=== PATIENT | male | born 1990 ===

== ENCOUNTER → 2020-07-04 15:14 | Outpatient (BNVA) | payer OTHER, SELFPAY | PROVIDERS: Family Provider Nurse Practitioner; PCP Nurse Practitioner; Visit Provider Nurse Practitioner Family | DX: R09.81 Nasal congestion (principal); J02.9 Acute pharyngitis, unspecified; R50.9 Fever, unspecified | CPT/HCPCS: 87635 ==

== ENCOUNTER → 2025-06-16 11:13 | Outpatient (BNVA) | payer BC, MEDICAID, SELFPAY | PROVIDERS: PCP Nurse Practitioner Family; Visit Provider Nurse Practitioner Family | DX: I10 Essential (primary) hypertension (principal) | CPT/HCPCS: 80053; 80061; 82306; 82607; 83735; 84439; 84443; 85025 ==